=== PATIENT | male | born 1985 | race African-American/Black ===

== ENCOUNTER 2017-03-04 22:40 | Emergency (ER) | payer OTHER ==
[2017-03-04 22:48] VITALS: BP 125/80; PULSE 80; TEMP 97.5; BMI 22.9
--- NOTE | 2017-03-04 22:58 | PDOC ---
History of Present Illness - General Chief Complaint: Pain Stated Complaint: R 5TH DIGIT Time Seen by Provider: 03/04/17 22:56 - History of Present Illness Initial Comments: This 31-year-old man, employee at [employer], presents with injury to the right fifth finger. 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 He impacted the tip of the right fifth finger against the ball or one of the other participants in the game. He sustained injury to the base of the nail, with some bleeding in this area. No other injury sustained. 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 Patient's health is otherwise unremarkable. Only ALLERGY is to Shrimp(lip/tongue swelling) Past History - Past Medical History Allergies/Adverse Reactions: Allergies Allergy/AdvReac Type Severity Reaction Status Date / Time shrimp Allergy Difficulty Verified 03/05/17 00:57 Breathing Home Medications: Ambulatory Orders Cephalexin [Keflex] 500 mg PO TID #15 capsule 03/05/17 Oxycodone HCl/Acetaminophen [Percocet 5-325 mg Tablet] 1 tab PO Q6H PRN #6 tablet MDD 2 tabs 03/05/17 Anemia: No Asthma: Yes Cancer: No Cardiac Disorders: No CVA: No COPD: No CHF: No Dementia: No Diabetes: No GI Disorders: No Disorders: No HTN: No Hypercholesterolemia: No Liver Disease: No Seizures: No Thyroid Disease: No - Immunization History Immunization Up to Date: Yes - Suicide/Smoking/Psychosocial Hx Smoking Status: No Smoking History: Unknown if ever smoked Have you smoked in the past 12 months: No Number of Cigarettes Smoked Daily: 0 Information on smoking cessation initiated: No Hx Alcohol Use: No Drug/Substance Use Hx: No Substance Use Type: None Hx Substance Use Treatment: No Review of Systems - Review of Systems Able to Perform ROS?: Yes Comments:: 12 point review of systems is negative except for what is noted in the history of present illness *Physical Exam - Vital Signs Last Vital Signs Temp Pulse Resp BP Pulse Ox 97.5 F L 80 14 125/80 100 03/04/17 22:43 03/04/17 22:43 03/04/17 22:43 03/04/17 22:43 03/04/17 22:43 - Physical Exam Comments: GENERAL: Adult male, alert and oriented 3, in no acute distress HEAD: Normal with no signs of trauma. ENT: Ears normal, nares patent, oropharynx clear without exudates. Moist mucous membranes. NECK: Normal range of motion, supple without lymphadenopathy, JVD, or masses. EXTREMITIES: Right upper extremity: Fifth fingermoderate edema, flexion deformity of the distal phalanx Dried blood around the periungual area; no active bleeding; no periungual hematoma Nail is intact but Base avulsed from the nailbed in the ulnar aspect NEUROLOGICAL: Cranial nerves II through XII grossly intact. Normal speech. No focal neurological deficits. Procedures - Laceration/Wound Repair Right Dorsal 5th digit Wound Length: to 2.5 cm Wound Explored: clean Wound's Depth, Shape: nail-avulsed Irrigated w/ Saline: Yes Betadine Prep: No (Hibiclens/ethanol ) Anesthesia: 1% Lidocaine Amount of Anesthetic (ccs): 4 Wound Debrided: minimal Wound Repaired With: Sutures Suture Size/Type: 5:0, other Number of Sutures: 2 Sterile Dressing Applied: Yes Splint Applied: Yes Sling Applied: No Progress: Area cleansed with Hibiclens/ethanol and sterilely draped. Digital block performed using 2 mL of 1% lidocaine in the radial and ulnar aspects of the base of the fifth digit. While digital block was taking effect, patient was sent for x-ray of the fifth finger. This revealed mildly displaced horizontal fracture of the distal phalanx. Additional 1 mL of 1% lidocaine placed at the base of the nail. Finger tourniquet placed at base of finger for hemostasis Using sterile technique, wound thoroughly irrigated using 40 mL of sterile normal saline. Using a hemostat, base of the nail, ulnar aspect, easily placed back into the nail fold. Laceration at the corner of the nail fold closed using 2 interrupted sutures of 5-0 chromic. Tourniquet released. No further bleeding seen. Finger is warm and dry with excellent capillary refill Bacitracin ointment and Vaseline gauze placed on the wound followed by dry sterile dressing. Progress Note - Progress Note Progress Note: Right fifth finger injury consistent with partial nail avulsion (repaired) with small laceration at the corner of the nail bed (repaired with 5-0 chromic). X- ray revealed mildly displaced linear fracture of the distal phalanx. Since this is an open fracture, patient will be started on Keflex 500 mg 3 times a day with first dose given here in the emergency room. After placement of the Vaseline gauze/bacitracin/sterile gauze dressing, splint applied. Patient will be referred to [facility] group hand surgeons:/. Work documentation stating the patient should not work until February the given to the patient . 1 tablet of Percocet 5/325 given to the patient for analgesia (patient's significant other is driving). Prescriptions for Keflex 500 mg 3 times a day for 5 days and Percocet 5/325 (#6 ) sent patient's pharmacy. *DC/Admit/Observation/Transfer Diagnosis at time of Disposition: Fracture, finger, distal phalanx Qualifiers: Encounter type: initial encounter Finger: little finger Fracture type: open Fracture alignment: displaced Laterality: left Qualified Code(s): S62.637B - Displaced fracture of distal phalanx of left little finger, initial encounter for open fracture - Discharge Dispostion Disposition: HOME Condition at time of disposition: Stable - Prescriptions Prescriptions: Cephalexin [Keflex] 500 mg PO TID #15 capsule Oxycodone HCl/Acetaminophen [Percocet 5-325 mg Tablet] 1 tab PO Q6H PRN #6 tablet MDD 2 tabs PRN Reason: Severe Pain - Referrals Referrals: Eben Raymundo MD [Staff Physician] - Call tomorrow - Patient Instructions Printed Discharge Instructions: Finger Fracture Additional Instructions: Keep splint intact and hand elevated as much as possible Call Dr. Raymundo/Dr. Yepez in a.m. to be seen within 1-2 days Keflex 500 mg 3 times a day for 5 days Motrin/Aleve/Tylenol for mild pain Percocet 5/325 twice a day as needed for severe pain No work until seen by orthopedist Return to ER if you have severe pain not relieved by medications - Post Discharge Activity Forms/Work/School Notes: Back to Work
[2017-03-05] MEDS ORDERED: LIDOCAINE HCL 1%, 10 MG/ML (20ML VIAL) ONE (00:27)
[2017-03-05] MEDS ORDERED: CEPHALEXIN MONOHYDRATE 500 MG CAPSULE (UD) PO ONE (00:48)
[2017-03-05] MEDS ORDERED: CEPHALEXIN MONOHYDRATE 500 MG CAPSULE (UD) ONE (00:53)
== END 2017-03-05 00:57 | disposition home or self-care (01) ==
LOC: FER 22:40
PROC: 0HQFXZZ Repair Right Hand Skin, External Approach (ICD-10-PCS; principal; 2017-03-04)
DX: S61.317A Laceration without foreign body of left little finger with damage to nail, initial encounter (principal); S62.637A Displaced fracture of distal phalanx of left little finger, initial encounter for closed fracture; W21.05XA Struck by basketball, initial encounter; Y93.67 Activity, basketball; Y92.9 Unspecified place or not applicable; J45.909 Unspecified asthma, uncomplicated
CPT/HCPCS: 73140-TC-RT; 99283-25

== ENCOUNTER 2018-03-10 21:36 | Emergency (ER) | payer SELFPAY ==
--- NOTE | 2018-03-10 21:43 | PDOC ---
History of Present Illness - General History Source: Patient Exam Limitations: No Limitations - History of Present Illness Initial Comments: 03/10/18 21:54 The patient is a 32 year old male, with a significant PMH of asthma, who presents to the emergency department with a nail injury to his right 5th finger that occured today. 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 The paint reports pain and bleeding to the site of injury. The denies any numbness or tingling. PAST MEDICAL HISTORY: no significant history PAST SURGICAL HISTORY: no significant history FAMILY HISTORY: no pertinent history SOCIAL HISTORY: Pt lives with family and is employed. MEDICATIONS: reviewed ALLERGIES: As per nursing notes Adult ROS General: No fevers or chills, no weakness, no weight loss HEENT: No change in vision. No sore throat,. No ear pain CardioVascular: No chest pain or shortness of breath Respiratory:No cough, or wheezing. Gastrointestinal: no nausea, vomiting, diarrhea or constipation, No rectal bleeding Genitourinary: No dysuria, hematuria, or frequency Musculoskeletal: No joint or muscle pain or swelling Neurologic: No headache, vertigo, dizziness or loss of consciousness Psychiatric: nor depression Skin: +Right pinky pain No rashes or easy bruising Endocrine: no increased thirst or abnormal weight change Allergic: no skin or latex allergy All other systems reviewed and normal Basic PE GENERAL: The patient is awake, alert, and fully oriented, in no acute distress. HEAD: Normal with no signs of trauma. EYES: Pupils equal, round and reactive to light, extraocular movements intact, sclera anicteric, conjunctiva clear. EXTREMITIES: Normal range of motion, no edema. NEUROLOGICAL: Normal speech, normal gait. PSYCH: Normal mood, normal affect. SKIN: + Right 5th finger partial avulsion of the nail. Affect only the base of the nail bed. No bleeding. No bony tenderness. <Kingsley Atkinson - Last Filed: 03/10/18 21:54> - General History Source: Patient Exam Limitations: No Limitations - History of Present Illness Initial Comments: A portion of this note was documented by scribe services under my direction. I have reviewed the details of the note, within reason, and agree with the documentation. The case summary and management plan written by me. 03/10/18 22:33 Procedure note Patient's finger was anesthetized via digital block using approximately 4 mL of lidocaine no epinephrine. Fingernail was removed and then replaced under the eponychial fold Bacitracin and sterile dressing were applied patient tolerated well Splint was applied to the finger 03/10/18 22:38 X-ray fracture distal phalanx reviewed by me 03/10/18 22:41 <Ariel Cohen I - Last Filed: 03/10/18 22:41> - General Chief Complaint: Injury Stated Complaint: NAIL INJURY Time Seen by Provider: 03/10/18 21:38 Past History <Kingsley Atkinson - Last Filed: 03/10/18 21:54> - Past Medical History Anemia: No Asthma: Yes Cancer: No Cardiac Disorders: No CVA: No COPD: No CHF: No Dementia: No Diabetes: No GI Disorders: No Disorders: No HTN: No Hypercholesterolemia: No Liver Disease: No Seizures: No Thyroid Disease: No - Immunization History Immunization Up to Date: Yes - Suicide/Smoking/Psychosocial Hx Smoking Status: No Smoking History: Unknown if ever smoked Have you smoked in the past 12 months: No Number of Cigarettes Smoked Daily: 0 Hx Alcohol Use: No Drug/Substance Use Hx: No Substance Use Type: None Hx Substance Use Treatment: No <Ariel Cohen I - Last Filed: 03/10/18 22:41> - Past Medical History Allergies/Adverse Reactions: Allergies Allergy/AdvReac Type Severity Reaction Status Date / Time shrimp Allergy Difficulty Verified 03/05/17 00:57 Breathing Home Medications: Ambulatory Orders NK [No Known Home Medication] 03/10/18 *Physical Exam - Vital Signs Last Vital Signs Temp Pulse Resp BP Pulse Ox 97.9 F 60 15 110/74 100 03/10/18 21:38 03/10/18 21:38 03/10/18 21:38 03/10/18 21:38 03/10/18 21:38 <Kingsley Atkinson - Last Filed: 03/10/18 21:54> *DC/Admit/Observation/Transfer - Attestations Scribe Attestion: 03/10/18 21:54 Documentation prepared by Kingsley Atkinson, acting as medical coding specialist for Ariel Cohen MD. <Kingsley Atkinson - Last Filed: 03/10/18 21:54> <[employer] Jose - Last Filed: 03/10/18 22:41> Diagnosis at time of Disposition: Nail avulsion, finger Qualifiers: Encounter type: initial encounter Qualified Code(s): S61.309A - Unspecified open wound of unspecified finger with damage to nail, initial encounter Fracture of finger of right hand Qualifiers: Encounter type: initial encounter Finger: little finger Fracture type: closed Phalanx: distal Fracture alignment: nondisplaced Qualified Code(s): S62.666A - Nondisplaced fracture of distal phalanx of right little finger, initial encounter for closed fracture - Discharge Dispostion Disposition: HOME Condition at time of disposition: Good - Patient Instructions Additional Instructions: Tylenol or Motrin as needed for pain. Wear the splint as much as possible however you can take it off to take a shower Change of Band-Aid once a day reapply some bacitracin to the nail area. Do this for 3-[address] Yepez for an appointment at [phone]. Return to the emergency department immediately with ANY new, persistent or worsening symptoms. Continue any medications as previously prescribed by your physician. You should follow up with your primary doctor as soon as possible regarding today's emergency department visit. . Please make sure your doctor reviews the results of your emergency evaluation. Thank you for coming to the Emergency Department today for your care. It was a pleasure to see you today. Please note that your evaluation is INCOMPLETE until you follow-up with your doctor.
[2018-03-10 21:53] VITALS: BP 110/74; PULSE 60; TEMP 97.9; BMI 21.5
[2018-03-10] MEDS ORDERED: IBUPROFEN 600 MG TABLET (FP) PO ONE ×2 (22:15→22:17)
== END 2018-03-10 22:43 | disposition home or self-care (01) ==
LOC: FER 21:36
PROC: 2W3JX1Z Immobilization of Right Finger using Splint (ICD-10-PCS; principal; 2018-03-10)
DX: S62.666A Nondisplaced fracture of distal phalanx of right little finger, initial encounter for closed fracture (principal); J45.909 Unspecified asthma, uncomplicated; X58.XXXA Exposure to other specified factors, initial encounter; Y93.89 Activity, other specified; Y92.89 Other specified places as the place of occurrence of the external cause
CPT/HCPCS: 73140-TC-RT-FY; 99282-25

== ENCOUNTER 2018-03-17 21:23 | Emergency (ER) | payer OTHER ==
[2018-03-17 21:51] VITALS: BP 125/80; PULSE 72; TEMP 98.1; BMI 25.8
--- NOTE | 2018-03-17 22:26 | PDOC ---
History of Present Illness - General Chief Complaint: Injury Stated Complaint: R FINGER INJURY Time Seen by Provider: 03/17/18 22:13 - History of Present Illness Initial Comments: 03/17/18 23:37 Patient with injury to the right fifth finger approximately one week ago. Has been working, reinjured finger today. Although x-ray reviewed. There is a transverse fracture of the distal phalanx. Exam today reveals no deformity, no inflammation, no erythema, no drainage suggestive of infection. The nail had apparently been removed and replaced temporarily as a dressing. The new nail is beginning to grow. There is minimal swelling and tenderness. Impression: Fracture, nail avulsion, 1-week-old. Reinjury today. No sign of infection or new deformity Plan: Finger was scrubbed with saline and dried. Xeroform gauze was loosely wrapped and a tube gauze applied. The patient has an appointment with a hand specialist for further evaluation and treatment. No work until further evaluation and recommendation by specialist. Patient does not need pain medication. Past History - Past Medical History Allergies/Adverse Reactions: Allergies Allergy/AdvReac Type Severity Reaction Status Date / Time shrimp Allergy Difficulty Verified 03/05/17 00:57 Breathing Home Medications: Ambulatory Orders NK [No Known Home Medication] 03/10/18 Anemia: No Asthma: Yes Cancer: No Cardiac Disorders: No CVA: No COPD: No CHF: No Dementia: No Diabetes: No GI Disorders: No Disorders: No HTN: No Hypercholesterolemia: No Liver Disease: No Seizures: No Thyroid Disease: No - Immunization History Immunization Up to Date: Yes - Suicide/Smoking/Psychosocial Hx Smoking Status: No Smoking History: Unknown if ever smoked Have you smoked in the past 12 months: No Number of Cigarettes Smoked Daily: 0 Information on smoking cessation initiated: No Hx Alcohol Use: No Drug/Substance Use Hx: No Substance Use Type: None Hx Substance Use Treatment: No *Physical Exam - Vital Signs Last Vital Signs Temp Pulse Resp BP Pulse Ox 98.1 F 72 14 125/80 95 03/17/18 21:28 03/17/18 21:28 03/17/18 21:28 03/17/18 21:28 03/17/18 21:28 *DC/Admit/Observation/Transfer Diagnosis at time of Disposition: Fracture of finger of right hand Qualifiers: Encounter type: initial encounter Finger: little finger Fracture type: closed Phalanx: distal Fracture alignment: nondisplaced Qualified Code(s): S62.666A - Nondisplaced fracture of distal phalanx of right little finger, initial encounter for closed fracture - Discharge Dispostion Disposition: HOME Condition at time of disposition: Stable Decision to Admit order: No - Referrals - Patient Instructions Printed Discharge Instructions: DI for Finger Fracture - Post Discharge Activity Forms/Work/School Notes: Back to Work
== END 2018-03-17 22:29 | disposition home or self-care (01) ==
LOC: FER 21:23
DX: S62.666A Nondisplaced fracture of distal phalanx of right little finger, initial encounter for closed fracture (principal); X58.XXXA Exposure to other specified factors, initial encounter; Y93.89 Activity, other specified; Y92.9 Unspecified place or not applicable
CPT/HCPCS: 99282-25

== ENCOUNTER 2018-12-02 02:12 | Emergency (ER) | payer SELFPAY ==
--- NOTE | 2018-12-02 02:14 | PDOC ---
History of Present Illness - General Chief Complaint: Cold Symptoms Stated Complaint: FEVER Time Seen by Provider: 12/02/18 02:13 - History of Present Illness Initial Comments: This 33-year-old man with a history of asthma (stable) but no other significant medical history presents with 3 day history of fever The patient originally had fever to 101F with nausea/vomiting 3 days ago; nausea and vomiting resolved over the last 24 hours. Today, he noted sore throat, mild nonproductive cough and diarrhea. No blood or mucus in diarrhea; patient states that diarrhea is bright green. MAXIMUM TEMPERATURE today was 103F. Patient last took Tylenol at approximately 6 PM. Patient denies sick contacts, stating that he lives alone and has no contacts with children. 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 Past History - Past Medical History Allergies/Adverse Reactions: Allergies Allergy/AdvReac Type Severity Reaction Status Date / Time shrimp Allergy Difficulty Verified 03/05/17 00:57 Breathing Home Medications: Ambulatory Orders NK [No Known Home Medication] 03/10/18 Anemia: No Asthma: Yes Cancer: No Cardiac Disorders: No CVA: No COPD: No CHF: No Dementia: No Diabetes: No GI Disorders: No Disorders: No HTN: No Hypercholesterolemia: No Liver Disease: No Seizures: No Thyroid Disease: No - Immunization History Immunization Up to Date: Yes - Suicide/Smoking/Psychosocial Hx Smoking Status: No Smoking History: Unknown if ever smoked Have you smoked in the past 12 months: No Number of Cigarettes Smoked Daily: 0 Hx Alcohol Use: No Drug/Substance Use Hx: No Substance Use Type: None Hx Substance Use Treatment: No *Physical Exam - Physical Exam Comments: GENERAL: HEAD: Normal with no signs of trauma. EYES: PERRLA, EOMI, sclera anicteric, conjunctiva clear. ENT: Ears normal, nares patent, oropharynx clear without exudates. Dry mucous membranes. NECK: Normal range of motion, supple without lymphadenopathy, JVD, or masses. LUNGS: Breath sounds equal, clear to auscultation bilaterally. No wheezes, and no crackles. HEART:Regular rate and rhythm, normal S1 and S2 without murmur, rub or gallop. ABDOMEN:.normal bowel sounds No guarding,tenderness or rebound.No masses No distention. EXTREMITIES: Normal range of motion, no edema. No clubbing or cyanosis. No erythema, or tenderness. NEUROLOGICAL: Cranial nerves II through XII grossly intact. Normal speech. No focal neurological deficits. MUSCULOSKELETAL: Back non-tender to palpation, no CVA tenderness SKIN: Warm, Dry, normal turgor, no rashes or lesions noted. *DC/Admit/Observation/Transfer Diagnosis at time of Disposition: Viral syndrome - Discharge Dispostion Disposition: HOME Condition at time of disposition: Stable - Referrals - Patient Instructions Printed Discharge Instructions: DI for Diarrhea and Traveler's Diarrhea -- Adult, DI for Viral Syndrome Additional Instructions: Rest; drink plenty of liquids (water alternating with Gatorade) No work until December 06 Alternate Tylenol with Motrin as needed for fever/bodyaches Consider rice/bananas/starchy foods as tolerated, as discussed Return to ER or see your doctor if you have persistent severe sore throat, high fever or vomiting - Post Discharge Activity Forms/Work/School Notes: Back to Work
[2018-12-02 02:17] VITALS: BP 113/72; PULSE 95; TEMP 103; BMI 25.8
[2018-12-02] MEDS ORDERED: IBUPROFEN 600 MG TABLET (FP) PO ONE ×2 (02:37→02:39)
== END 2018-12-02 02:51 | disposition home or self-care (01) ==
LOC: FER 02:12
DX: B34.9 Viral infection, unspecified (principal); J45.909 Unspecified asthma, uncomplicated
CPT/HCPCS: 99282-25

== ENCOUNTER 2019-05-16 20:08 | Emergency (ER) | payer OTHER ==
[2019-05-16 20:15] VITALS: BP 121/76; PULSE 75; TEMP 98.3; BMI 22.9
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
== END 2019-05-16 20:57 | disposition home or self-care (01) ==
LOC: FER 20:08
CPT/HCPCS: 99282-25

== ENCOUNTER 2019-05-26 15:40 | Emergency (ER) | payer OTHER ==
--- NOTE | 2019-05-26 15:45 | PDOC ---
History of Present Illness - General Chief Complaint: Injury Stated Complaint: LEFT KNEE PAIN Time Seen by Provider: 05/26/19 15:45 - History of Present Illness Initial Comments: 05/26/19 16:20 Chief complaint: Left knee pain HPI: Patient injured his left knee at work about 1 week ago. Examined in the emergency room and diagnosed with a knee sprain. No imaging was done. The pain has persisted. Especially upon lateral movement. It is located in the lateral posterior knee overlying the head of the fibula. Review of systems: There is no distal numbness tingling pain or weakness of the lower extremity there is been no knee swelling, erythema, or warmth. He is ambulating normally when walking straight, but lateral movements aggravate the lateral knee pain. Past medical history: Healthy male without active medical or surgical problems, no medications Social/family history reviewed and noncontributory Physical exam: Alert and oriented well-developed well-nourished no acute distress cheerful and cooperative Afebrile, vital signs normal Left knee: No deformity, swelling, erythema, warmth, or limited range of motion. Pulses full and symmetric. No distal sensory or motor deficits. Patella and patellar retinaculum intact and nontender. Lockman sign negative. No stress tenderness or laxity of the medial or lateral collateral ligaments. There is point tenderness over the head of the fibula without deformity or crepitus. Impression: Distal hamstring tendinitis, localized to the head of the fibula. No significant knee injury Plan: X-ray negative. Deep wrap applied. Patient comfortable after application with no distal numbness tingling pain or weakness and good pulses. Rest ice and anti-inflammatories, orthopedic follow-up in 1 week if pain persists. Fully ambulatory with no significant pain or other distress at discharge to follow-up as directed Past History - Past Medical History Allergies/Adverse Reactions: Allergies Allergy/AdvReac Type Severity Reaction Status Date / Time No Known Drug Allergies Allergy Verified 05/26/19 15:42 shrimp Allergy Difficulty Verified 05/26/19 15:42 Breathing Home Medications: Ambulatory Orders NK [No Known Home Medication] 03/10/18 Anemia: No Asthma: Yes Cancer: No Cardiac Disorders: No CVA: No COPD: No CHF: No Dementia: No Diabetes: No GI Disorders: No Disorders: No HTN: No Hypercholesterolemia: No Liver Disease: No Seizures: No Thyroid Disease: No - Immunization History Td Vaccination: Yes Immunization Up to Date: Yes - Psycho Social/Smoking Cessation Hx Smoking Status: No Smoking History: Never smoked Have you smoked in the past 12 months: No Number of Cigarettes Smoked Daily: 0 Hx Alcohol Use: No Drug/Substance Use Hx: No Substance Use Type: None Hx Substance Use Treatment: No Discharge - Discharge Information Problems reviewed: Yes Clinical Impression/Diagnosis: Knee sprain Qualifiers: Involved ligament of knee: lateral collateral ligament Laterality: left Condition: Stable Disposition: HOME - Admission No - Follow up/Referral Referrals: Keo Yepez MD [Staff Physician] - 1 week - Patient Discharge Instructions Patient Printed Discharge Instructions: How to Use an Elastic Bandage-Knee Sprain, DI for Knee Sprain - Post Discharge Activity
[2019-05-26 15:46] VITALS: BP 115/71; PULSE 71; TEMP 97.7; BMI 22.2
== END 2019-05-26 16:20 | disposition home or self-care (01) ==
LOC: FER 15:40
CPT/HCPCS: 73560-TC-LT-FY; 99282-25